=== PATIENT | female | born 1945 | race Caucasian/White ===

== ENCOUNTER → 2021-08-18 10:33 | Outpatient (CLI) | payer MEDICARE, SELFPAY ==
--- NOTE | ~2021-08-18 | DEXA_ITS ---
Bone Density Report Name: Estefani Dumont Age: 75 Sex: Female Ethnicity: White Date of : 1945 Indication: postmenopausal; screening for osteoporosis; parental hip fracture; height loss; hysterectomy; Referring Provider: Bruna Escobar Study: Bone densitometry was performed. Exam Date: August 18, 2021 Accession number: [id number] Bone Density: Region BMD T-score Z-score Classification AP Spine (L1, L2) 1.109 1.2 3.4 Normal Femoral Neck (Left) 0.892 0.4 2.5 Normal Total Hip (Left) 0.962 0.2 1.9 Normal Femoral Neck (Right) 0.946 0.9 2.9 Normal Total Hip (Right) 0.923 -0.2 1.6 Normal Total Hip Mean 0.943 0.0 1.8 Normal World Health Organization criteria for BMD impression classify patients as: Normal (T-score at or above -1.0), Osteopenia (T-score between -1.0 and -2.5), or Osteoporosis (T-score at or below -2.5). 10-year Fracture Risk: FRAX not reported because: All T-scores for Spine Total, Hip Total, Femoral Neck at or above -1.0 Previous Exams: Region Exam Age BMD T-score BMD Change BMD Change Date g/cm2 vs Baseline vs Previous AP Spine(L1, L2) 08/18/2021 75 1.109 1.2 0.060* 0.010 02/17/2017 71 1.099 1.1 0.051* 0.044* 11/11/2009 64 1.055 0.7 0.007 0.007 10/21/2007 61 1.048 0.6 Total Hip(Left) 08/18/2021 75 0.962 0.2 -0.046 -0.040* 02/17/2017 71 1.003 0.5 -0.006 0.043* 11/11/2009 64 0.959 0.1 -0.049 -0.023 10/21/2007 61 0.982 0.3 -0.026 -0.026 04/25/2003 57 1.009 0.5 Total Hip(Right) 08/18/2021 75 0.923 -0.2 -0.067 -0.146* 02/17/2017 71 1.069 1.0 0.079 0.111* 11/11/2009 64 0.958 0.1 -0.031 -0.063* 10/21/2007 61 1.022 0.7 0.032 0.032 04/25/2003 57 0.990 0.4 *Denotes significance at 95% confidence level, LSC for AP Spine = 0.022 g/cm2, LSC for Total Hip = 0.027 g/cm2 Clinical Information Provided by Patient: Parent has had a hip fracture Has used the following medications: Vitamin D, Calcium, MTV Has the following medical conditions: Hysterectomy Patient maximum height was 67 Menopause Age: 47 Drinks caffeinated beverages Onset of menses at age 13 Number of children 2 Impression: The patient has normal bone mass. The patient has risk factors, inclu
--- NOTE | ~2021-08-18 | MM_ITS ---
EXAMINATION: MM screening [facility]gor[facility]ata BI w sugar HISTORY: Screening TECHNIQUE: Craniocaudal and mediolateral oblique 3-D tomosynthesis images were obtained and synthetic 2-D images were generated. CAD analysis was submitted and interpreted. COMPARISON: Comparison to multiple prior studies sequentially, with oldest reviewed study dated 02/17. BREAST PARENCHYMAL COMPOSITION: There are scattered areas of fibroglandular density. FINDINGS: There is no evidence of suspicious mass, calcification, or architectural distortion to sugg est malignancy in either breast. There has been no suspicious interval change. IMPRESSION: 1. No mammographic evidence of malignancy. 2. Recommend routine screening mammography in one year. BI-RADS Category 1: Negative Reviewed, dictated and finalized at location A.
== END ==
PROVIDERS: PCP Family Medicine
DX: Z12.31 Encounter for screening mammogram for malignant neoplasm of breast (principal); Z78.0 Asymptomatic menopausal state
CPT/HCPCS: 77063; 77067; 77080

== ENCOUNTER 2022-12-12 08:18 | Emergency (ER) | payer MEDICARE, SELFPAY ==
[2022-12-12 08:39] VITALS: BP 135/51; PULSE 71; RESP 18; TEMP 37.3; O2SAT 100
--- NOTE | 2022-12-12 08:40 | ED.URI ---
HPI - URI/Sore Throat General Chief Complaint: Upper Respiratory Infection Stated Complaint: Sinus Time Seen by Provider: 12/12/22 08:40 Source: patient Mode of arrival: ambulatory Limitations: no limitations History of Present Illness HPI Narrative: 77-year-old female presents with complaint of sore throat, nasal congestion, sinus and ear pressure for 5 days. Afebrile. Denies chills. Also has a mild cough. Denies chest pain and shortness of breath. No nausea vomiting diarrhea. Patient reports strep exposure 1 week ago to her grandson. All systems reviewed and negative except as noted above. Related Data Home Medications Medication Instructions Recorded Confirmed acetaminophen 650 mg 650 mg PO Q8H 10/09/20 12/12/22 tablet,extended release (Tylenol Arthritis Pain) ibuprofen 600 mg tablet 600 mg PO Q6H 10/09/20 12/12/22 magnesium 200 mg tablet 200 mg PO DAILY 10/09/20 12/12/22 methocarbamol 750 mg tablet 750 mg PO TID 10/09/20 12/12/22 multivitamin (Daily Multi-Vitamin 1 tablet PO DAILY 10/09/20 12/12/22 tablet) selenium 200 mcg tablet 200 mcg PO DAILY 10/09/20 12/12/22 Allergies Allergy/AdvReac Type Severity Reaction Status Date / Time No Known Allergies Allergy Verified 12/12/22 08:33 Review of Systems Review of Systems: CONSTITUTIONAL: Denies fever, chills, or sweats. EYES: Denies visual changes, redness, or discharge. ENT: Reports rhinorrhea, congestion, sore throat, sinus pressure and ear pressure. CARDIOVASCULAR: Denies chest pain, palpitations, or edema. RESPIRATORY: Reports cough. Denies dyspnea. GASTROINTESTINAL: Denies abdominal pain, nausea, vomiting, or diarrhea. GENITOURINARY: Denies dysuria or hematuria. SKIN: Denies rash or itching. MUSCULOSKELETAL: Denies back pain, joint pain, or myalgia. NEUROLOGIC: Denies headache, numbness, or weakness. PSYCHIATRIC: Denies anxiety or depression. All other systems reviewed are negative, except as documented in HPI. [facility] Past Medical History Medical History BMI 31.0-31.9,adult Degenerative arthritis of knee, bilateral Osteoporosis Surgical History Surgical History H/O: hysterectomy History of bladder surgery Family History Family History Sibling Patient's sister is in good health Patient's brother is in good health Patient's sister is Mother Patient's mother is Father Patient's father is Social History Social History Smoking status: Former smoker Second hand tobacco smoke exposure: No Smoking end date: 11/22/06 Alcohol intake: never Living arrangements: with family Gender identity (if verbalized by the patient): Female Comments At time of signature, agree with nursing past medical, surgical, social and family history. There is no relevant family history pertinent to the presenting complaint. Exam Narrative: GENERAL: This is a well-nourished, well-developed patient, in no apparent distress. HEAD: normocephalic, atraumatic. EYES: PERRL. Sclera clear/white. Vision is grossly intact. EARS: External ears normal, auditory canals clear and without drainage, TMs normal without perforation. Hearing grossly intact. NOSE: External nose normal with clear nasal drainage, moderate congestion. No sinus tenderness. THROAT: Mucous membranes moist, posterior pharynx clear. NECK: Neck supple, non-tender without lymphadenopathy, masses or thyromegaly. CARDIOVASCULAR: Regular rate and rhythm without murmurs, gallops, or rubs. RESPIRATORY: Clear to auscultation. Breath sounds equal bilaterally. No wheezes, rales, or rhonchi. SKIN: warm, Dry, intact with no suspicious lesions or rash, good texture and turgor. NEURO: awake, alert, and orie
== END 2022-12-12 09:02 | disposition home or self-care (01) ==
PROVIDERS: Emergency Provider Nurse Practitioner Family; PCP Family Medicine
DX: J01.90 Acute sinusitis, unspecified (principal); Z20.822 Contact with and (suspected) exposure to COVID-19; M81.0 Age-related osteoporosis without current pathological fracture; M17.0 Bilateral primary osteoarthritis of knee
CPT/HCPCS: 87081; 87426; 87880; 99213; C9803; G0463

== ENCOUNTER 2023-02-12 17:21 | Emergency (ER) | payer MEDICARE, SELFPAY ==
--- NOTE | ~2023-02-12 | XR_ITS ---
XR foot RT 2V DATE: 02/12/2023 18:40 INDICATION: Pain, right lateral Achilles tendon area TECHNIQUE: AP and lateral views COMPARISON: None FINDINGS: Distal Achilles tendon calcification overlying soft tissue swelling, consistent with Achill es tendinitis. There is mild plantar and posterior calcaneal enthesopathy. No fracture, dislocation, periosteal reaction or bone destruction. There is osteoarthritic change at multiple sites including first metatarsophalangeal joint, tarsal me tatarsal and interphalangeal joints. IMPRESSION: Plantar and posterior calcaneal enthesopathy Achilles tendinitis. Osteopenia Polyarticular osteoarthritis Reviewed, dictated and finalized at location A.
[2023-02-12 17:40] VITALS: BP 171/61; PULSE 79; RESP 16; TEMP 37.3; O2SAT 99
--- NOTE | 2023-02-12 18:24 | ED.LOWEXIN ---
HPI - Extremity Injury (Lower) General Chief Complaint: Extremity Injury, Lower Stated Complaint: swelling and pain in right ankle/heel Time Seen by Provider: 02/12/23 18:24 Source: patient Mode of arrival: ambulatory Limitations: no limitations History of Present Illness HPI Narrative: 77-year-old female presents with complaint of pain and swelling to right heel for approximately 1 week. States that she called her primary care physician today because she thinks that is related to her blood pressure medication but they were not able to see her. Told her that she needs to get an x-ray. Patient denies injury. States that she has been taking losartan for approximately 2 weeks and thinks that the pain is related to the blood pressure medication. patient had walks every morning and has not changed her workout routine. No new shoes. All systems reviewed and negative except as noted above. Related Data Home Medications Medication Instructions Recorded Confirmed magnesium 200 mg tablet 200 mg PO DAILY 10/09/20 02/12/23 multivitamin (Daily Multi-Vitamin 1 tablet PO DAILY 10/09/20 02/12/23 tablet) selenium 200 mcg tablet 200 mcg PO DAILY 10/09/20 02/12/23 losartan 25 mg tablet 25 mg PO DAILY 02/12/23 02/12/23 Allergies Allergy/AdvReac Type Severity Reaction Status Date / Time No Known Allergies Allergy Verified 02/12/23 18:19 Review of Systems Review of Systems: CONSTITUTIONAL: Denies fever, chills, or sweats. EYES: Denies visual changes, redness, or discharge. ENT: Denies rhinorrhea, congestion, sore throat, or otalgia. CARDIOVASCULAR: Denies chest pain, palpitations, or edema. RESPIRATORY: Denies cough or dyspnea. GASTROINTESTINAL: Denies abdominal pain, nausea, vomiting, or diarrhea. GENITOURINARY: Denies dysuria or hematuria. SKIN: Denies rash or itching. MUSCULOSKELETAL: Denies back pain, joint pain, or myalgia. Reports pain to right heel. NEUROLOGIC: Denies headache, numbness, or weakness. PSYCHIATRIC: Denies anxiety or depression. All other systems reviewed are negative, except as documented in HPI. ON LICENSE OF [facility] Past Medical History Medical History BMI 31.0-31.9,adult Degenerative arthritis of knee, bilateral Osteoporosis Surgical History Surgical History H/O: hysterectomy History of bladder surgery Family History Family History Sibling Patient's sister is in good health Patient's brother is in good health Patient's sister is Mother Patient's mother is Father Patient's father is Social History Social History Smoking status: Former smoker Second hand tobacco smoke exposure: No Smoking end date: 11/22/06 Alcohol intake: never Living arrangements: with family Gender identity (if verbalized by the patient): Female Comments At time of signature, agree with nursing past medical, surgical, social and family history. There is no relevant family history pertinent to the presenting complaint. Exam Narrative: GENERAL: This is a well-nourished, well-developed patient, in no apparent distress. HEAD: normocephalic, atraumatic. EYES: PERRL. Sclera clear/white. Vision is grossly intact. EARS: External ears normal NOSE: External nose normal NECK: Neck supple, non-tender without lymphadenopathy, masses or thyromegaly. CARDIOVASCULAR: Regular rate and rhythm without murmurs, gallops, or rubs. RESPIRATORY: Clear to auscultation. Breath sounds equal bilaterally. No wheezes, rales, or rhonchi. SKIN: warm, Dry, intact with no suspicious lesions or rash, good texture and turgor. NEURO: awake, alert, and oriented to person, place and time. There were no obvious focal neurologic abnormalities. EXTREMITIES: Te
== END 2023-02-12 19:14 | disposition home or self-care (01) ==
PROVIDERS: Emergency Provider Nurse Practitioner Family; PCP Family Medicine
DX: M76.61 Achilles tendinitis, right leg (principal); Z87.891 Personal history of nicotine dependence
CPT/HCPCS: 73620; 99213; G0463

== ENCOUNTER → 2023-03-11 14:40 | Outpatient (CLI) | payer MEDICARE, SELFPAY ==
--- NOTE | ~2023-03-11 | MM_ITS ---
EXAMINATION: MM screening [facility] BI w sugar HISTORY: Screening mammogram TECHNIQUE: Craniocaudal and mediolateral oblique 3-D tomosynthesis images were obtained and synthetic 2-D images were generated. CAD analysis was submitted and interpreted. COMPARISON: 08/18/2021, 10/10/2019, 02/17/2017 BREAST PARENCHYMAL COMPOSITION: There are scattered areas of fibroglandular density. FINDINGS: RIGHT BREAST: There is a possible mass in the anterior third of the upper breast at the 12:00 locatio n. LEFT BREAST: No suspicious mass, calcification, or architectural distortion are identified to suggest malignancy. There has been no suspicious interval change. IMPRESSION: 1. Possible right breast mass. 2. Additional mammographic views and possible breast ultrasound are recommended. BI-RADS Category 0: Incomplete: Needs additional imaging evaluation. Reviewed, dictated and finalized at location A. IMPRESSION: 1. Possible right breast mass. 2. Additional mammographic views and possible breast ultrasound are recommended . BI-RADS Category 0: Incomplete: Needs additional imaging evaluation.
== END ==
PROVIDERS: PCP Family Medicine; Visit Provider Family Medicine
DX: Z12.31 Encounter for screening mammogram for malignant neoplasm of breast (principal)
CPT/HCPCS: 77063; 77067

== ENCOUNTER → 2023-04-16 07:40 | Outpatient (CLI) | payer MEDICARE, SELFPAY ==
--- NOTE | ~2023-04-16 | MMUS_ITS ---
EXAMINATION: MM diagnostic malgorzata RT w sugar, US breast RT limited HISTORY: Possible right breast mass on screening mammogram TECHNIQUE: Additional 3-D tomosynthesis images of the right breast were performed and synthetic 2-D i mages were generated. CAD analysis was submitted and interpreted. High resolution limited right breas t ultrasound was performed. COMPARISON: 03/11/2023, 08/18/2021, 10/10/2019 BREAST PARENCHYMAL COMPOSITION: There are scattered areas of fibroglandular density. FINDINGS: MAMMOGRAPHIC FINDINGS: There is a 4 mm irregular, equal density, spiculated mass in the anterior third of the upper breast a t the 12:00 location, 6 cm from the nipple. ULTRASOUND: There is a 4 mm x 2 mm irregular, hypoechoic, not parallel mass at the 12:00 location, 3.5 cm from th e nipple which demonstrates posterior acoustic shadowing and internal vascularity. IMPRESSION: 1. Suspicious right breast mass. 2. Ultrasound-guided biopsy is recommended. BI-RADS category 4, suspicious findings. Reviewed, dictated and finalized at location A. IMPRESSION: 1. Suspicious right breast mass. 2. Ultrasound-guided biopsy is recommended. BI-RADS category 4, suspicious findings.
== END ==
PROVIDERS: PCP Family Medicine; Visit Provider Family Medicine
DX: N63.10 Unspecified lump in the right breast, unspecified quadrant (principal); R92.2 Inconclusive mammogram; R92.8 Other abnormal and inconclusive findings on diagnostic imaging of breast
CPT/HCPCS: 76642; 77061; 77065; G0279